=== PATIENT | female | born 1990 | race African-American/Black ===

== ENCOUNTER 2019-03-01 15:21 | Emergency (ER) | payer SELFPAY ==
[~2019-03-01] VITALS: Ht 154.9 cm; Wt 57.6 kg
[2019-03-01 15:32] VITALS: BP 120/67
--- NOTE | 2019-03-01 16:05 | NUR ---
PT TO BED 11 WITH STEADY GAIT
--- NOTE | 2019-03-01 16:06 | NUR ---
C/O VOMITING, PAIN IN LUQ 04/11 X5 DAYS. DENIES VOMITING BLOOD. PT REPORTS "BURNING" SENSATION WHEN SHE VOMITS. PT STATES SHE HAS NOT BEEN ABLE TO KEEP FOOD DOWN. LBM 02/28/19 -NORMAL. BOWEL SOUNDS ACTIVE IN ALL 4 QUADRANTS. ABDOMEN SOFT AND ROUND. HX: NONE RX: NONE
--- NOTE | 2019-03-01 17:45 | NUR ---
PATIENT LEFT WITHOUT BEING SEEN BY DR. LEVI. NO FURTHER CARE PROVIDED FOR PATIENT.
== END 2019-03-01 17:45 | disposition left against medical advice (07) ==
LOC: MED 15:21
DX: R11.10 Vomiting, unspecified (principal); Z53.21 Procedure and treatment not carried out due to patient leaving prior to being seen by health care provider

== ENCOUNTER 2019-06-22 22:45 | Emergency (ER) | payer SELFPAY ==
[~2019-06-22] VITALS: Ht 157.5 cm; Wt 58.5 kg
[2019-06-22 23:01] VITALS: BP 139/82
--- NOTE | 2019-06-22 23:07 | NUR ---
PT AMBULATED TO LOBBY WITH VSS.
--- NOTE | 2019-06-22 23:41 | NUR ---
PATIENT CALLED TO BE TRIAGE NO RESPONSE PATIENT LEFT WITHOUT BEING SEEN BY DR. MCDERMOTT. NO FURTHER CARE PROVIDED FOR PATIENT.
--- NOTE | 2019-06-22 23:46 | NUR ---
CALLED FOR THE SECOND TIME , NO RESPONSE
--- NOTE | 2019-06-22 23:51 | NUR ---
CALLED FOR THE THIRD TIME , NO RESPONSE
== END 2019-06-22 23:41 | disposition left against medical advice (07) ==
LOC: MED 22:45
DX: K92.0 Hematemesis (principal); Z53.21 Procedure and treatment not carried out due to patient leaving prior to being seen by health care provider

== ENCOUNTER 2019-07-18 11:27 | Emergency (ER) | payer SELFPAY ==
[~2019-07-18] VITALS: Ht 157.5 cm; Wt 59.9 kg
[2019-07-18 11:39] VITALS: BP 111/65
--- NOTE | 2019-07-18 11:43 | NUR ---
PT AMBULATED TO ED SHELIA
--- NOTE | 2019-07-18 13:15 | NUR ---
C/O COLD SYMPTOMS SINCE TUESDAY 06/12, PT STATED WENT AWAY ON THURSDAY 06/14. YESTERDAY STARTED HAVING FEVER TMAX 102, CHILLS, ABDOMINAL PAIN, N/V. STATES NO PAIN AT THIS TIME. PT STATES SICK CONTACTS AT HOME. APPEARS IN NAD. LUNGS CTAB. DENIES PMH
--- NOTE | 2019-07-18 13:44 | NUR ---
PA JOHNSON EVALUATING PT AT THIS TIME
[2019-07-18] MEDS ORDERED: ONDANSETRON 4 MG ODT PO ONE (13:50)
--- NOTE | 2019-07-18 14:03 | NUR ---
PT IN BATHROOM TO PROVIDE URINE SAMPLE
--- NOTE | 2019-07-18 14:43 | NUR ---
Patient discharged with v/s stable. Written and verbal after care instructions given and explained. ZOFRAN ODT, MOTRIN, PROMETHAZINE Patient alert, oriented and verbalized understanding of instructions. Ambulatory with steady gait. All questions addressed prior to discharge. ID band removed. Patient advised to follow up with PMD. Rx of given. Patient educated on indication of medication including possible reaction and side effects. Opportunity to ask questions provided and answered.
[2019-07-18 14:49] VITALS: BP 151/65
== END 2019-07-18 14:42 | disposition home or self-care (01) ==
LOC: MED 11:27
DX: B34.9 Viral infection, unspecified (principal); R10.9 Unspecified abdominal pain
CPT/HCPCS: 81002; 81025; 99283; Q0162

== ENCOUNTER 2019-08-04 12:51 | Emergency (ER) | payer SELFPAY ==
[~2019-08-04] VITALS: Ht 157.5 cm; Wt 60.8 kg
[2019-08-04 13:05] VITALS: BP 108/67
--- NOTE | 2019-08-04 13:07 | NUR ---
TRIAGE COMPLETE. VSS. RETURNED TO LOBBY AWAITNG BED IN ED.
--- NOTE | 2019-08-04 13:24 | NUR ---
PT TAKEN TO CHAIR A
--- NOTE | 2019-08-04 13:28 | NUR ---
PT STATES SLIPPED AND FELL YESTERDAY, POSSIBLE TWISTED FOOT DURING FALL +2 PEDAL PULSE ---AMBULATORY WITH SLOW GUARDED STEADY GAIT.
--- NOTE | 2019-08-04 13:44 | NUR ---
PT TO RADIOLOGY VIA
[2019-08-04] MEDS ORDERED: KETOROLAC 30 MG/ML VIAL IM ONE (14:15)
--- NOTE | 2019-08-04 14:32 | NUR ---
SHORT LEG POSTERIOR SPLINT PLACED ON PT'S RIGHT FOOT. CRUTCHES WERE ADJUSTED AND GIVEN TO PT WELL. SHE STATES SHE HAS USED CRUTCHES BEFORE IN THE PAST, NO FURTHER INSTRUCTION WAS NEEDED.
[2019-08-04 14:40] VITALS: BP 108/67
--- NOTE | 2019-08-04 14:40 | NUR ---
Patient discharged with v/s stable. Written and verbal after care instructions given and explained. Patient alert, oriented and verbalized understanding of instructions. Ambulatory with steady gait. All questions addressed prior to discharge. ID band removed. Patient advised to follow up with PMD. Rx of IBUPROFEN,NORCO given. Patient educated on indication of medication including possible reaction and side effects. Opportunity to ask questions provided and answered.
== END 2019-08-04 14:40 | disposition home or self-care (01) ==
LOC: MED 12:51
DX: S62.336A Displaced fracture of neck of fifth metacarpal bone, right hand, initial encounter for closed fracture (principal); W01.0XXA Fall on same level from slipping, tripping and stumbling without subsequent striking against object, initial encounter; Y93.89 Activity, other specified; Y92.89 Other specified places as the place of occurrence of the external cause; Y99.8 Other external cause status
CPT/HCPCS: 29515; 73630; 96372; 99283; J1885

== ENCOUNTER 2021-12-19 14:39 | Emergency (ER) | payer MEDICAID ==
--- NOTE | 2021-12-19 14:45 | NUR ---
CALLED X 1. NO SHOW.
--- NOTE | 2021-12-19 14:55 | NUR ---
CALLED [phone]. NO ANSWERRING.
--- NOTE | 2021-12-19 15:24 | NUR ---
PATIENT LEFT WITHOUT BEING SEEN BY DR. SWARTZ. NO FURTHER CARE PROVIDED FOR PATIENT.
== END 2021-12-19 14:45 | disposition left against medical advice (07) ==
LOC: MED 14:39
DX: R10.9 Unspecified abdominal pain (principal); Z53.21 Procedure and treatment not carried out due to patient leaving prior to being seen by health care provider